=== PATIENT | female | born 1960 | race Caucasian/White ===

== ENCOUNTER 2018-07-15 15:44 | Emergency (ER) | payer MEDICARE, MEDICAID ==
[~2018-07-15] VITALS: Ht 167.6 cm; Wt 73.2 kg
[~2018-07-15 15:44] MED LIST: FLUO40CA PO; GABA300C PO; HYDR-3964; OMEP20CA10 PO; ROPI1TAB2 PO; TRAZ-218 PO
[2018-07-15 16:10] VITALS: BP 132/79
[2018-07-15] MEDS ORDERED: HYDROcodone/acetaminophen 5mg/325mg tablet PO ONE (16:50)
[2018-07-15] MEDS ORDERED: CefTRIAXone 1000mg IM Kit (w/lidocaine diluent) IM ONE (16:50)
[2018-07-15 17:06] LABS: BASOPHILS % (AUTO) 0.2 % (0-1); EOSINOPHILS # (AUTO) 0.2 X10'3 (0-0.9); EOSINOPHILS % (AUTO) 2.1 % (0-6); HEMATOCRIT 32.2 % (35.0-45.0); HEMOGLOBIN 10.2 g/dl (12.0-16.0); LYMPHOCYTES # (AUTO) 1.7 X10'3 (1.1-4.8); LYMPHOCYTES % (AUTO) 23.1 % (21-51); MEAN CORPUSCULAR HEMOGLOBIN 21.4 PG (27.0-31.0); MEAN CORPUSCULAR HGB CONC 31.5 % (33.0-36.5); MEAN CORPUSCULAR VOLUME 67.8 FL (78-98); MEAN PLATELET VOLUME 8.6 FL (7.4-10.4); MONOCYTES # (AUTO) 0.4 X10'3 (0-0.9); MONOCYTES % (AUTO) 4.7 % (2-12); NEUTROPHILS # (AUTO) 5.2 X10'3 (1.8-7.7); NEUTROPHILS % (AUTO) 69.9 % (42-75); PLATELET COUNT 256 X10'3 (140-440); RED BLOOD COUNT 4.75 X10'6 (4.20-5.60); RED CELL DISTRIBUTION WIDTH 19.3 % (11.5-14.5); WHITE BLOOD COUNT 7.5 X10'3 (4.5-11.0)
[2018-07-15 17:15] LABS: ALANINE AMINOTRANSFERASE 15 U/L (12-78); ALBUMIN 3.6 G/DL (3.4-5.0); ALBUMIN/GLOBULIN RATIO 0.9 (1.1-1.5); ALKALINE PHOSPHATASE 107 IU/L (46-116); ANION GAP 10 (8-16); ASPARTATE AMINO TRANSFERASE 26 U/L (10-37); BILIRUBIN,TOTAL 0.3 MG/DL (0.1-1.0); BLOOD UREA NITROGEN 10 MG/DL (7-18); BUN/CREATININE RATIO 16.1 (6.6-38.0); CALCIUM 6.8 MG/DL (8.5-10.1); CHLORIDE 102 MMOL/L (99-107); CREATININE 0.62 MG/DL (0.40-0.90); GLUCOSE 75 MG/DL (70-104); SODIUM 139 MMOL/L (135-145); TOTAL CARBON DIOXIDE 26.6 MMOL/L (24-32); TOTAL PROTEIN 7.6 G/DL (6.4-8.2); eGFR > 90 ML/MIN
[2018-07-15] MEDS ORDERED: CEPH-571 PO (17:16)
[2018-07-15] MEDS ORDERED: TRAM50TA2 PO (17:16)
== END 2018-07-15 17:40 | disposition home or self-care (01) ==
LOC: ER 15:44
DX: L03.113 Cellulitis of right upper limb (principal); S60.861A Insect bite (nonvenomous) of right wrist, initial encounter; K21.9 Gastro-esophageal reflux disease without esophagitis; E11.9 Type 2 diabetes mellitus without complications; G89.29 Other chronic pain; Z86.14 Personal history of Methicillin resistant Staphylococcus aureus infection; Z90.49 Acquired absence of other specified parts of digestive tract; Z98.51 Tubal ligation status; Z98.890 Other specified postprocedural states; Z88.5 Allergy status to narcotic agent; Z79.2 Long term (current) use of antibiotics; Z79.899 Other long term (current) drug therapy; W57.XXXA Bitten or stung by nonvenomous insect and other nonvenomous arthropods, initial encounter; Y93.89 Activity, other specified; Y92.89 Other specified places as the place of occurrence of the external cause; Y99.8 Other external cause status
CPT/HCPCS: 36415; 80053; 85025; 85651; 96372; 99284; J0696

== ENCOUNTER 2021-02-25 20:15 | Emergency (ER) | payer BC, MEDICAID ==
[~2021-02-25] VITALS: Ht 172.7 cm; Wt 81.8 kg
[~2021-02-25 20:15] MED LIST changes: +CEPH-571 PO; -OMEP20CA10 PO; +OMEP20CA15 PO; -TRAZ-218 PO; +TRAZ-251 PO
[2021-02-25 20:21] VITALS: BP 118/64
[2021-02-25] MEDS ORDERED: HYDROcodone/acetaminophen 5mg/325mg tablet PO ONE (20:30)
[2021-02-25] MEDS ORDERED: bacitracin 15gm ointment TP ONE (22:15)
[2021-02-25] MEDS ORDERED: ibuprofen tablet 400 MG TABLET PO ONE (22:15)
[2021-02-25] MEDS ORDERED: HYDR-3965 PO (22:43)
== END 2021-02-25 22:54 | disposition home or self-care (01) ==
LOC: ER 20:16
DX: S90.31XA Contusion of right foot, initial encounter (principal); K21.9 Gastro-esophageal reflux disease without esophagitis; E11.9 Type 2 diabetes mellitus without complications; E05.90 Thyrotoxicosis, unspecified without thyrotoxic crisis or storm; G89.29 Other chronic pain; F41.9 Anxiety disorder, unspecified; F32.9 Major depressive disorder, single episode, unspecified; Z90.49 Acquired absence of other specified parts of digestive tract; Z98.51 Tubal ligation status; Z98.890 Other specified postprocedural states; Z86.73 Personal history of transient ischemic attack (TIA), and cerebral infarction without residual deficits; Z88.5 Allergy status to narcotic agent; Z79.899 Other long term (current) drug therapy; X58.XXXA Exposure to other specified factors, initial encounter; Y93.89 Activity, other specified; Y92.89 Other specified places as the place of occurrence of the external cause; Y99.8 Other external cause status
CPT/HCPCS: 73610; 73630; 99284

== ENCOUNTER 2021-06-08 18:34 | Emergency (ER) | payer BC, MEDICAID ==
[~2021-06-08] VITALS: Ht 172.7 cm; Wt 81.8 kg
[2021-06-08 18:43] VITALS: BP 148/85
[2021-06-09] MEDS ORDERED: IBUP-1985 PO (01:19)
[2021-06-09] MEDS ORDERED: HYDR-3965 PO (01:19)
[2021-06-09] MEDS ORDERED: ACET-1025 PO (01:19)
[2021-06-09] MEDS ORDERED: CYCL-1 PO (01:19)
== END 2021-06-08 21:13 | disposition left against medical advice (07) ==
LOC: ER 18:35
DX: M54.2 Cervicalgia (principal); Z53.21 Procedure and treatment not carried out due to patient leaving prior to being seen by health care provider

== ENCOUNTER 2021-06-08 23:28 | Emergency (ER) | payer BC, MEDICAID ==
[~2021-06-08] VITALS: Ht 172.7 cm; Wt 100.0 kg
[2021-06-08 23:31] VITALS: BP 136/76
[2021-06-09] MEDS ORDERED: ketorolac trometh inj. 60 MG/2 ML VIAL IM ONE (01:15)
[2021-06-09] MEDS ORDERED: orphenadrine citrate 60mg/2ml inj. IM ONE (01:15)
[2021-06-09] MEDS ORDERED: acetaminophen 325mg tablet PO ONE (01:15)
[2021-06-09] MEDS ORDERED: LIDOcaine 5% patch TP ONE (01:15)
[2021-06-09] MEDS ORDERED: CYCL-1 PO (01:19)
[2021-06-09] MEDS ORDERED: ACET-1025 PO (01:19)
[2021-06-09] MEDS ORDERED: HYDR-3965 PO (01:19)
[2021-06-09] MEDS ORDERED: IBUP-1985 PO (01:19)
[2021-06-09] MEDS ORDERED: HYDROcodone/acetaminophen 5mg/325mg tablet PO ONE (01:20)
[2021-06-09] MEDS ORDERED: ondansetron 4mg rapidly disintigrating tab PO ONE (01:20)
[2021-06-09] MEDS ORDERED: ketorolac trometh. 30mg/ml inj. IM ONE (01:25)
== END 2021-06-09 01:37 | disposition home or self-care (01) ==
LOC: ER 23:30
DX: M54.2 Cervicalgia (principal); K21.9 Gastro-esophageal reflux disease without esophagitis; E11.9 Type 2 diabetes mellitus without complications; G89.29 Other chronic pain; F41.9 Anxiety disorder, unspecified; F32.9 Major depressive disorder, single episode, unspecified; E05.90 Thyrotoxicosis, unspecified without thyrotoxic crisis or storm; Z86.73 Personal history of transient ischemic attack (TIA), and cerebral infarction without residual deficits; Z90.49 Acquired absence of other specified parts of digestive tract; Z98.51 Tubal ligation status; Z88.5 Allergy status to narcotic agent; Z79.2 Long term (current) use of antibiotics; Z79.899 Other long term (current) drug therapy
CPT/HCPCS: 96372; 99284; J1885; J2360

== ENCOUNTER 2022-01-04 12:39 | Emergency (ER) | payer BC, MEDICAID ==
[~2022-01-04] VITALS: Ht 172.7 cm; Wt 81.8 kg
[~2022-01-04 12:39] MED LIST changes: +CYCL-1 PO; +IBUP-1985 PO
[2022-01-04 13:32] VITALS: BP 153/74
[2022-01-04] MEDS ORDERED: LIDOcaine 1% W/epiNEPHrine 1:200,000 10ml vial IJ ONE (14:10)
[2022-01-04] MEDS ORDERED: LIDOcaine 1% w/EPI 1:100,000 30ml vial (MDV) IJ ONE (14:15)
[2022-01-04] MEDS ORDERED: CEPH-585 PO (14:24)
== END 2022-01-04 14:54 | disposition home or self-care (01) ==
LOC: ER 12:40
DX: L03.116 Cellulitis of left lower limb (principal); L02.416 Cutaneous abscess of left lower limb; K21.9 Gastro-esophageal reflux disease without esophagitis; E11.9 Type 2 diabetes mellitus without complications; E05.90 Thyrotoxicosis, unspecified without thyrotoxic crisis or storm; G89.29 Other chronic pain; F41.9 Anxiety disorder, unspecified; F32.A Depression, unspecified; Z86.73 Personal history of transient ischemic attack (TIA), and cerebral infarction without residual deficits; Z90.49 Acquired absence of other specified parts of digestive tract; Z98.51 Tubal ligation status; Z98.890 Other specified postprocedural states; Z88.5 Allergy status to narcotic agent; Z79.2 Long term (current) use of antibiotics; Z79.899 Other long term (current) drug therapy
CPT/HCPCS: 99283

== ENCOUNTER 2022-03-07 02:48 | Emergency (ER) | payer BC, MEDICAID ==
[~2022-03-07] VITALS: Ht 167.6 cm; Wt 81.5 kg
--- NOTE | 2022-03-07 03:12 | NUR ---
DR AUGUSTE IS AWARE OF PT. HE WILL PUT IN ORDERS FOR IMAGING
[2022-03-07] MEDS ORDERED: HYDR-3965 PO (05:46)
[2022-03-07 06:26] VITALS: BP 168/77
== END 2022-03-07 06:10 | disposition home or self-care (01) ==
LOC: ER 02:48
DX: S80.211A Abrasion, right knee, initial encounter (principal); S93.401A Sprain of unspecified ligament of right ankle, initial encounter; S00.83XA Contusion of other part of head, initial encounter; W18.39XA Other fall on same level, initial encounter; Y93.89 Activity, other specified; Y92.89 Other specified places as the place of occurrence of the external cause; Y99.8 Other external cause status
CPT/HCPCS: 29540; 70450; 72125; 73564; 73610; 73630; 99284; 99285

== ENCOUNTER 2022-12-22 17:58 | Emergency (ER) | payer BC, MEDICAID ==
[~2022-12-22] VITALS: Ht 172.7 cm; Wt 79.1 kg
[2022-12-22 18:27] VITALS: BP 122/70
== END 2022-12-23 01:47 | disposition left against medical advice (07) ==
LOC: ER 17:58
DX: R10.9 Unspecified abdominal pain (principal); Z53.21 Procedure and treatment not carried out due to patient leaving prior to being seen by health care provider; W19.XXXA Unspecified fall, initial encounter; Y93.89 Activity, other specified; Y92.89 Other specified places as the place of occurrence of the external cause; Y99.8 Other external cause status

== ENCOUNTER 2023-07-02 08:23 | Emergency (ER) | payer MEDICARE, MEDICAID ==
[~2023-07-02] VITALS: Ht 162.6 cm; Wt 78.6 kg
[2023-07-02 08:29] VITALS: BP 147/75; PULSE 88; TEMP 98.2; O2SAT 98
[2023-07-02] MEDS ORDERED: NAPR-56 PO (10:09)
[2023-07-02] MEDS ORDERED: CYCL-1 PO (10:09)
== END 2023-07-02 10:26 | disposition home or self-care (01) ==
LOC: ER 08:24
DX: S29.011A Strain of muscle and tendon of front wall of thorax, initial encounter (principal); X58.XXXA Exposure to other specified factors, initial encounter; Y93.89 Activity, other specified; Y92.89 Other specified places as the place of occurrence of the external cause; Y99.8 Other external cause status
CPT/HCPCS: 71100; 99283